=== PATIENT | male | born 1985 | race African-American/Black ===

== ENCOUNTER 2016-05-01 16:03 | Emergency (ER) | payer BC, OTHER ==
[2016-05-01 17:19] LABS: Hematocrit 45 % (42-52); Hemoglobin 14.5 g/dl (14.0-18.0); Mean Corpuscular HGB Conc 33 g/dl (31-36); Mean Corpuscular Hemoglobin 27 pg (27-31); Mean Corpuscular Volume 83 fL (80-94); Mean Platelet Volume 8 um3 (7.4-10.4); Red Blood Count 5.41 10^6/ul (4.0-5.4); Red Cell Distribution Width 14 % (10.5-15); White Blood Count 12.1 10^3/ul (3.5-10.8)
--- NOTE | 2016-05-01 17:19 | RAD ---
INDICATION: Hypertension COMPARISON: October 24, 2013 TECHNIQUE: An AP portable view obtained at 1655 hours is submitted. FINDINGS: Bones/Soft Tissues: There are no acute bony findings. Cardiomediastinal: The cardiomediastinal silhouette is normal. Lungs: There are no infiltrates. Pleura: There are no pleural effusions. Other: None IMPRESSION: NO ACTIVE DISEASE.
[2016-05-01 17:23] LABS: Urine Bilirubin Negative (Negative); Urine Glucose Negative (Negative); Urine Nitrite Negative (Negative)
[2016-05-01] MEDS ORDERED: amLODIPine TAB* 5 MG PO ONE (17:30)
[2016-05-01 17:47] LABS: Albumin 4.6 g/dL (3.2-5.2); BUN/Creatinine Ratio 15.1 (8-20); Calcium 9.9 mg/dL (8.6-10.3); EGFR African American 105.5 (>60); Globulin 3.5 g/dL (2-4); Total Bilirubin 0.3 mg/dL (0.2-1.0); Total Protein 8.1 g/dL (6.4-8.9)
[2016-05-01 17:48] LABS: Potassium 3.7 mmol/L (3.5-5.0)
[2016-05-01 17:57] LABS: TSH (Thyroid Stimulating Horm) 0.86 mcIU/mL (0.34-5.60)
[2016-05-01 18:33] LABS: Troponin I 0.01 ng/mL (<0.04)
[2016-05-01] MEDS ORDERED: NS 0.9% 1000 ML* 2,000 ML IV ONE (18:44)
[2016-05-01 20:16] LABS: Benzodiazepine Urine Screen None Detected (None Detect)
[2016-05-01] MEDS ORDERED: NS 0.9% 1000 ML* 1,000 ML IV ONE (23:59)
--- NOTE | 2016-05-02 00:51 | HP ---
CONSULTATION REPORT: DATE OF CONSULT: 05/01/16 - EMERGENCY DEPT TIME OF EVALUATION: 2099 PRIMARY CARE PHYSICIAN: Hank Pathak MD REASON FOR CONSULT: Evaluation for admission for elevated CPK. HISTORY OF PRESENT ILLNESS: This is a 30-year-old male with the past medical history of hypertension, who presented to the emergency room for not feeling well with an elevated blood pressure. 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 He checked his blood pressure, it was 180/110 which is very high for him. He states he has been compliant with his medications, but does not adhere to a low salt diet. He came to the emergency room for further evaluation. At that time on arrival, his blood pressure had since been lowered. There was no intervention for his blood pressure treatment, but labs did show that he had an elevated CK and mildly elevated AST and ALT. The patient states he denies any exertional activity. He works in the kitchen every day, but he states he is very laid back. He denies any muscle cramping. No abdominal pain. He has had a recent illness a few weeks ago that he thought was due to strep. He had old penicillin that he had from a prior strep infection that he took for 7 days. Denies any fever. No chest pain, no shortness of breath. As mentioned, no muscle aches or pains. Just feeling tired and off. No headache. Otherwise, remaining review of systems is negative. In the emergency room, the patient had labs. He was given a liter of saline and was referred to the hospitalist service for further evaluation. PAST MEDICAL HISTORY: Hypertension. MEDICATIONS: 1. Amlodipine 5 mg p.o. daily. 2. Hydrochlorothiazide 25 mg p.o. daily. ALLERGIES: No known drug allergies. FAMILY HISTORY: Both of his parents are alive and healthy. 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 He does smoke marijuana daily in the evening. No alcohol use. No other illicit drug use. His healthcare proxy is his Sejal dasilva. REVIEW OF SYSTEMS: As mentioned in the HPI. PHYSICAL EXAMINATION GENERAL: In no acute distress, resting comfortably. VITAL SIGNS: Temp 98.1, pulse rate 69, respiratory rate 22, oxygen saturation 97 % on room air, blood pressure 127/81. HEENT: Oropharynx: Mucous membranes are moist. No erythema or exudate. Pupils equal and reactive, anicteric. Head normocephalic. NECK: Supple. No lymphadenopathy. RESPIRATORY: Clear to auscultation. No wheezes, rhonchi, or rales. CARDIAC: Regular rate and rhythm. No murmurs, rubs, or gallops. ABDOMEN: Soft, nontender, nondistended. EXTREMITIES: No clubbing, cyanosis, or edema. +2 DPs. NEUROLOGIC: Alert and oriented x3. No focal neurologic deficits. MUSCULOSKELETAL: No muscle tenderness when palpating his lower extremities. LABORATORY DATA: White count 12.1, hemoglobin 14.5, hematocrit 45, platelets 299. Sodium 136, potassium 3.7, chloride 100, bicarb 29, BUN 16, creatinine 1.06. AST 69, ALT 59. Total CK is 2381. Troponin 0.01. TSH 0.86. Urinalysis is clear. Negative blood. No ketones. Urine tox screen positive for cannabinoids. Chest x-ray shows no active disease. EKG shows normal sinus rhythm. No significant ST changes. ASSESSMENT: This is a 30-year-old male with a past medical history of hypertension, who presented to the emergency room with an elevated hypertension while at work, who was found to have an elevated CK and elevated AST and ALT. 1. Elevated CK with elevated LFTs. Assessment: The patient has had elevated LFTs in the past. This could be unrelated to his elevated CK, although with mild rhabdo, you can have elevated transaminases. His diagnosis is mild rhabdomyolysis, most likely secondary to a viral myositis. He has not had any recent blood work to compare to, but I suspect this is probably trending down from his viral illness with the strep. No renal impairment. No findings on urinalysis. The patient is reluctant to come in because he states he needs to leave at 7:30 a.m. and would rather follow up with his primary care physician. Recommendation: I spoke with Dr. Diamond and stated possibly repeating his labs to see if they are going down after a bag of fluids and that he should follow up with his primary care physician if there is further workup needed or things progressed, and he certainly could be admitted, but at this time with him being asymptomatic, showing mild rhabdo with no other organ impairment, the patient can be discharged to home with close followup with his primary. Dr. Diamond and the patient are agreeable to this. PATIENT TIME: Greater than 60 minutes was spent doing the history and physical , more than half the time was spent in direct patient contact. CC: Hank Pathak MD * [id number]/[facility] #: [id number] MTDD
[2016-05-02 04:11] VITALS: BP 126/88
--- NOTE | 2016-05-12 21:01 | ED ---
aster Torres Timothy, scribed for Adan Diamond MD on 05/01/16 at 1641 . Hypertension - HPI Summary HPI Summary: Ltio Mooney is a 30 yo male presenting to [facility] with feelings of weakness and fatigue since 1500 today. Pt states he feels "spent". He has a Hx of HTN as of 2 years ago, and took his BP at work and found it to be 180/110. He states he had left arm and leg numbness for about 1.5 hours ago, which has since resolved. He states he had his BP taken a week ago and it was normal. He denies unilateral weakness or numbness, as well as any other Sx. He denies any new stressors. His MHx includes HTN, lumbar surgery 2010, and substance use. - History of Current Complaint Stated Complaint: HIGH BLOOD PRESSURE Time Seen by Provider: 05/01/16 16:39 Hx Obtained From: Patient Onset/Duration: Started Hours Ago, Still Present Timing: Constant Reported Blood Pressure Prior To Arrival: 180/110 Associated Signs & Symptoms: Numbness - LLE, LUE, Other: - fatigue/weakness - Allergies/Home Medications Allergies/Adverse Reactions: Allergies Allergy/AdvReac Type Severity Reaction Status Date / Time No Known Allergies Allergy Verified 12/26/15 16:15 PMH/Surg Hx/FS Hx/Imm Hx Endocrine/Hematology History: Denies: Hx Anticoagulant Therapy, Hx Diabetes, Hx Thyroid Disease Cardiovascular History: Reports: Hx Hypertension Denies: Hx Pacemaker/ICD Respiratory History: Denies: Hx Asthma, Hx Chronic Obstructive Pulmonary Disease (COPD) History: Denies: Hx Renal Disease Sensory History: Denies: Hx Hearing Aid Neurological History: Denies: Hx Dementia, Hx Seizures Psychiatric History: Denies: Hx Panic Disorder, Hx Substance Abuse - Surgical History Surgery Procedure, Year, and Place: lumbar surgery 2010 Infectious Disease History: No Infectious Disease History: Denies: Hx Hepatitis, Hx Human Immunodeficiency Virus (HIV), Traveled Outside the [place] in Last 30 Days - Family History Known Family History: Positive: Hypertension, Diabetes, Other - cancer - Social History Alcohol Use: Rare Hx Substance Use: Yes Substance Use Type: Reports: Marijuana Substance Use Comment - Amount & Last Used: occassional Hx Tobacco Use: No Smoking Status (MU): Never Smoked Tobacco Review of Systems Positive: Fatigue Eyes: Negative ENT: Negative Cardiovascular: Negative Negative: Chest Pain Respiratory: Negative Negative: Shortness Of Breath, Cough Gastrointestinal: Negative Negative: Vomiting, Nausea Genitourinary: Negative Musculoskeletal: Negative Skin: Negative Positive: Weakness, Numbness - LLE, LUE Psychological: Normal All Other Systems Reviewed And Are Negative: Yes Physical Exam - Summary Physical Exam Summary: VITAL SIGNS: Reviewed. GENERAL: Patient is a well developed and nourished male who is lying comfortable in the stretcher. Patient is not in any acute respiratory distress. HEAD AND FACE: No signs of trauma. No ecchymosis, hematomas or skull depressions. No sinus tenderness. EYES: PERRLA, EOMI x 2, No injected conjunctiva, no nystagmus. EARS: Hearing grossly intact. Ear canals and tympanic membranes are within normal limits. MOUTH: Oropharynx within normal limits. NECK: Supple, trachea is midline, no adenopathy, no JVD, no carotid bruit, no c- spine tenderness, neck with full ROM. CHEST: Symmetric, no tenderness at palpation LUNGS: Clear to auscultation bilaterally. No wheezing or crackles. CVS: Regular rate and rhythm, S1 and S2 present, no murmurs or gallops appreciated. ABDOMEN: Soft, non-tender. No signs of distention. No rebound no guarding, and no masses palpated. Bowel sounds are normal. EXTREMITIES: FROM in all major joints, no edema, no cyanosis or clubbing. NEURO: Alert and oriented x 3. No acute neurological deficits. Speech is normal and follows commands. SKIN: Dry and warm Triage Information Reviewed: Yes Vital Signs On Initial Exam: Initial Vitals Temp Pulse Resp BP Pulse Ox 98.1 F 91 20 162/93 98 05/01/16 16:21 05/01/16 16:21 05/01/16 16:21 05/01/16 16:21 05/01/16 16:21 Vital Signs Reviewed: Yes Diagnostics - Vital Signs Vital Signs Temp Pulse Resp BP Pulse Ox 05/01/16 16:21 98.1 F 91 20 162/93 98 - Laboratory Lab Results: Lab Results 05/01/16 05/01/16 Range/Units 17:00 17:00 WBC 12.1 H (3.5-10.8) 10^3/ul RBC 5.41 H (4.0-5.4) 10^6/ul Hgb 14.5 (14.0-18.0) g/dl Hct 45 (42-52) % MCV 83 (80-94) fL MCH 27 (27-31) pg MCHC 33 (31-36) g/dl RDW 14 (10.5-15) % Plt Count 299 (150-450) 10^3/ul MPV 8 (7.4-10.4) um3 Neut % (Auto) 49.2 (38-83) % Lymph % (Auto) 41.1 (25-47) % [place] % (Auto) 6.1 (1-9) % Eos % (Auto) 2.6 (0-6) % Baso % (Auto) 1.0 (0-2) % Absolute Neuts (auto) 6.0 (1.5-7.7) 10^3/ul Absolute Lymphs (auto) 5.0 H (1.0-4.8) 10^3/ul Absolute Monos (auto) 0.7 (0-0.8) 10^3/ul Absolute Eos (auto) 0.3 (0-0.6) 10^3/ul Absolute Basos (auto) 0.1 (0-0.2) 10^3/ul Absolute Nucleated RBC 0.02 10^3/ul Nucleated RBC % 0.2 Urine Color Yellow Urine Appearance Clear Urine pH 5.0 (5-9) Ur Specific [place] 1.021 (1.010-1.030) Urine Protein Negative (Negative) Urine Ketones Negative (Negative) Urine Blood Negative (Negative) Urine Nitrate Negative (Negative) Urine Bilirubin Negative (Negative) Urine Urobilinogen Negative (Negative) Ur Leukocyte Esterase Negative (Negative) Urine Glucose Negative (Negative) Urine Ascorbic Acid * H (Negative) Result Diagrams: 05/01/16 17:00 05/01/16 17:00 Lab Statement: Any lab studies that have been ordered have been reviewed, and results considered in the medical decision making process. - Radiology CXR Xray Interpretation: No Acute Changes - IMPRESSION: NO ACTIVE DISEASE. Radiology Interpretation Completed By: Radiologist - EKG 2121 Cardiac Rate: NL - 83 BPM EKG Interpretation: NSR @ 83 BPM, no ST elevation Re-Evaluation - Re-Evaluation First Eval Re-Evaluation Time: 19:04 Change: Worse Comment: Pt is feeling weak and tired, "horrible" Second Eval Re-Evaluation Time: 21:00 Change: Unchanged Comment: Pt was instructed that it is recommended that he be admitted to [facility], he states he is unable to do so. His CPK will be repeated, a final decision will be made pending this information. Hypertension Course/Dx - Course Assessment/Plan: Lito Mooney is a 30 yo male presenting [facility] aft taking his own BP and finding it to be 180/110, and feeling weak with numbness in his LLE and LUE which spnatenously reolved. His BP in room was 162/93. Pt's bloodwork was within normal limitsexcept for his white count of 12.1, Cl 100, cpk 2381, consistent with rhabdomyolysis. Troponin tests showed 0.01, the urinalysis showed negative results. His CXR showed no acute disease, his EKG displayed a NSR at [address] elevations. Initially, he was hypertensive, but without medication, his BP improved, it is now 127/81. Pt was given IV fluids for his rhabdomyolysis. I discussed my findings and results with Dr. Anguiano who accepted the Pt for work up and management. After the patient was admitted he decided that he can not stay. Therfore he was hydrated with IVF x liters and repeated the CPK. CPK # is pending, and he will be signed out to Dr. Carlson. He was recommended if discharged to increase his water intake and he will be discharged home with f/u of PMD. He understands and agrees. I discussed all the findings and test results with the patient. Patient was instructed to return to the emergency room immediately if any of the symptoms return or worsens. Plan of care was discussed with the patient and understands and agrees. All questions were answered at patient satisfaction. There were no further complaints or concerns. Lung exam before discharge: CTA B/L. Good air exchange. No wheezing or crackles heard. CVS: S1 and S2 present. No murmurs appreciated. Patient is alert and oriented x 3. Patient is hemodynamically stable. 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 Anguiano (hospitalist) - Discussed Pt condiiton, agrees to admit Pt Instructed by Provider To: Admit As Inpatient Discharge - Discharge Plan Condition: Stable Disposition: OTHER Discharge Disposition Comment: Signed out to Dr. Carlson pending CPK Patient Education Materials: Rhabdomyolysis (ED), Hypertension (ED) Referrals: Hank Pathak MD [Primary Care Provider] - Additional Instructions: Please follow up with your primary care physician regarding your visit to the emergency department today. Return to the emergency department with any new or recurring symptoms. The documentation as recorded by the aster chavez Timothy accurately reflects the service I personally performed and the decisions made by me, Adan Diamond MD.
== END 2016-05-02 04:11 | disposition home or self-care (01) ==
LOC: ED 16:03
DX: M62.82 Rhabdomyolysis (principal); I10 Essential (primary) hypertension
CPT/HCPCS: 36415; 71010; 80053; 80307; 81003; 82550; 82553; 83880; 84443; 84484; 85025; 93005; 96360; 99283; A9270-GY

== ENCOUNTER 2017-02-22 10:29 | Emergency (ER) | payer BC ==
[2017-02-22 11:46] LABS: ABS Basophils 0 10^3/ul (0-0.2); ABS Eosinophils 0.1 10^3/ul (0-0.6); ABS Lymphocytes 2.6 10^3/ul (1.0-4.8); ABS Monocytes 0.7 10^3/ul (0-0.8); ABS Neutrophils 4.1 10^3/ul (1.5-7.7); ABS Nucleated RBC 0 10^3/ul; Eosinophil % 1.3 % (0-6); Hematocrit 43 % (42-52); Hemoglobin 14.4 g/dl (14.0-18.0); Lymphocyte % 34.8 % (25-47); Mean Corpuscular HGB Conc 33 g/dl (31-36); Mean Corpuscular Hemoglobin 28 pg (27-31); Mean Corpuscular Volume 83 fL (80-94); Mean Platelet Volume 7 um3 (7.4-10.4); Nucleated Red Blood Cells % 0.1; Platelet Count 265 10^3/ul (150-450); Red Blood Count 5.21 10^6/ul (4.0-5.4); Red Cell Distribution Width 14 % (10.5-15); White Blood Count 7.6 10^3/ul (3.5-10.8)
[2017-02-22] MEDS ORDERED: NS 0.9% 1000 ML* 1,000 ML IV ONE (11:46)
[2017-02-22] MEDS ORDERED: Ondansetron INJ* 2 MG/ML VIAL IV ONE (11:46)
[2017-02-22 12:01] LABS: EGFR Non-African American 87.2 (>60)
[2017-02-22] MEDS ORDERED: Famotidine TAB* 20 MG PO ONE (13:16)
[2017-02-22] MEDS ORDERED: Al Hydrox/Mg Hydrox/Simet LIQ* 30 ML UDC PO ONE (13:16)
[2017-02-22 14:23] VITALS: BP 148/85
--- NOTE | 2017-02-22 18:08 | ED ---
Derek Torres Natalie, scribed for Jayden Morales MD on 02/22/17 at 1327 . Abdominal Pain/Male - HPI Summary HPI Summary: The pt is a 31 y/o M presenting to the ED c/o abd pain gradual onset. The pain is rated 6/10 in severity. The pain is aggravated by nothing and is alleviated by nothing. 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 Pt additionally c /o diarrhea, vomiting, indigestion, decreased fluid intake. Pt denies blood in stool. No one else in his home currently has the same symptoms. He has hx of HTN. He does not smoke or drink. He has not had any abd surgery. - History of Current Complaint Chief Complaint: EDAbdPain Stated Complaint: VOMITING/DIARRHEA/ABD PAIN Time Seen by Provider: 02/22/17 13:12 Hx Obtained From: Patient Onset/Duration: Gradual Onset, Still Present Timing: Lasting Hours Severity Initially: Moderate Severity Currently: Moderate Pain Intensity: 6 Pain Scale Used: 0-10 Numeric Location: Diffuse Radiates: No Aggravating Factor(s): Nothing Alleviating Factor(s): Nothing Associated Signs And Symptoms: Positive: Other - POSITIVE: diarrhea, vomiting, indigestion, decreased fluid intake; NEGATIVE: blood in stool - Allergies/Home Medications Allergies/Adverse Reactions: Allergies Allergy/AdvReac Type Severity Reaction Status Date / Time No Known Allergies Allergy Verified 02/22/17 10:35 PMH/Surg Hx/FS Hx/Imm Hx Previously Healthy: No Endocrine/Hematology History: Denies: Hx Anticoagulant Therapy, Hx Diabetes, Hx Thyroid Disease Cardiovascular History: Reports: Hx Hypertension Denies: Hx Pacemaker/ICD Respiratory History: Denies: Hx Asthma, Hx Chronic Obstructive Pulmonary Disease (COPD) History: Denies: Hx Renal Disease Sensory History: Denies: Hx Hearing Aid Neurological History: Denies: Hx Dementia, Hx Seizures Psychiatric History: Denies: Hx Panic Disorder, Hx Substance Abuse - Surgical History Surgery Procedure, Year, and Place: lumbar surgery 2010 Infectious Disease History: No Infectious Disease History: Denies: Hx Hepatitis, Hx Human Immunodeficiency Virus (HIV), Traveled Outside the [place] in Last 30 Days - Family History Known Family History: Positive: Hypertension, Diabetes, Other - cancer - Social History Alcohol Use: Rare Hx Substance Use: Yes Substance Use Type: Reports: Marijuana Substance Use Comment - Amount & Last Used: occassional Hx Tobacco Use: No Smoking Status (MU): Never Smoked Tobacco Review of Systems Negative: Fever Positive: Abdominal Pain, Vomiting, Diarrhea, Other - POSITIVE: indigestion, decresed fluid intake; NEGATIVE: blood in stool All Other Systems Reviewed And Are Negative: Yes Physical Exam Triage Information Reviewed: Yes Vital Signs On Initial Exam: Initial Vitals Temp Pulse Resp BP Pulse Ox 97.3 F 77 16 157/98 97 02/22/17 10:35 02/22/17 10:35 02/22/17 10:35 02/22/17 10:35 02/22/17 10:35 Vital Signs Reviewed: Yes Appearance: Positive: Well-Appearing, No Pain Distress Skin: Positive: Warm, Skin Color Reflects Adequate Perfusion, Dry Head/Face: Positive: Normal Head/Face Inspection Eyes: Positive: EOMI, SRAVAN ENT: Positive: Normal ENT inspection Neck: Positive: Supple, Nontender Respiratory/Lung Sounds: Positive: Clear to Auscultation, Breath Sounds Present Cardiovascular: Positive: RRR, Pulses are Symmetrical in both Upper and Lower Extremities Abdomen Description: Positive: Nontender, Soft Bowel Sounds: Positive: Present Musculoskeletal: Positive: Normal, Strength/ROM Intact Neurological: Positive: Normal, Sensory/Motor Intact, Alert, Oriented to Person Place, Time Diagnostics - Vital Signs Vital Signs Temp Pulse Resp BP Pulse Ox 02/22/17 10:35 97.3 F 77 16 157/98 97 - Laboratory Lab Results: Lab Results 02/22/17 02/22/17 02/22/17 Range/Units 11:14 11:14 11:14 WBC 7.6 (3.5-10.8) 10^3/ul RBC 5.21 (4.0-5.4) 10^6/ul Hgb 14.4 (14.0-18.0) g/dl Hct 43 (42-52) % MCV 83 (80-94) fL MCH 28 (27-31) pg MCHC 33 (31-36) g/dl RDW 14 (10.5-15) % Plt Count 265 (150-450) 10^3/ul MPV 7 L (7.4-10.4) um3 Neut % (Auto) 54.3 (38-83) % Lymph % (Auto) 34.8 (25-47) % [place] % (Auto) 9.3 H (1-9) % Eos % (Auto) 1.3 (0-6) % Baso % (Auto) 0.3 (0-2) % Absolute Neuts (auto) 4.1 (1.5-7.7) 10^3/ul Absolute Lymphs (auto) 2.6 (1.0-4.8) 10^3/ul Absolute Monos (auto) 0.7 (0-0.8) 10^3/ul Absolute Eos (auto) 0.1 (0-0.6) 10^3/ul Absolute Basos (auto) 0 (0-0.2) 10^3/ul Absolute Nucleated RBC 0 10^3/ul Nucleated RBC % 0.1 Sodium 135 (133-145) mmol/L Potassium 3.5 (3.5-5.0) mmol/L Chloride 100 L (101-111) mmol/L Carbon Dioxide 28 (22-32) mmol/L Anion Gap 7 (2-11) mmol/L BUN 10 (6-24) mg/dL Creatinine 1.00 (0.67-1.17) mg/dL Est GFR ( Amer) 112.1 (>60) Est GFR (Non-Af Amer) 87.2 (>60) BUN/Creatinine Ratio 10.0 (8-20) Glucose 93 (70-100) mg/dL Lactic Acid 0.8 (0.5-2.0) mmol/L Calcium 8.9 (8.6-10.3) mg/dL Total Bilirubin 0.60 (0.2-1.0) mg/dL AST 31 (13-39) U/L ALT 45 (7-52) U/L Alkaline Phosphatase 42 (34-104) U/L C-Reactive Protein 28.77 H (< 5.00) mg/L Total Protein 7.3 (6.4-8.9) g/dL Albumin 4.2 (3.2-5.2) g/dL Globulin 3.1 (2-4) g/dL Albumin/Globulin Ratio 1.4 (1-3) Lipase 12 (11.0-82.0) U/L Result Diagrams: 02/22/17 11:14 02/22/17 11:14 Lab Statement: Any lab studies that have been ordered have been reviewed, and results considered in the medical decision making process. Re-Evaluation - Re-Evaluation First Eval Change: Improved Abdominal Pain Fem Course/Dx - Course Course Of Treatment: pt with N/V/D. Tx with hydration, zofran with improvement. Likely viral with current viral source AGE endemic in the area. - Diagnoses Differential Diagnosis/HQI/PQRI: Diverticulitis, Pancreatitis, Other - AGE Provider Diagnoses: Acute gastroenteritis Discharge - Discharge Plan Condition: Good Disposition: HOME Prescriptions: Famotidine TAB* [Pepcid 20 MG TAB*] 20 mg PO BID #14 tab Ondansetron ODT TAB* [Zofran 4 MG Odt TAB*] 4 mg PO Q8H PRN #10 tab.odt PRN Reason: Nausea Patient Education Materials: Gastroenteritis (ED) Forms: *Work Release Referrals: Hank Pathak MD [Primary Care Provider] - Additional Instructions: [place] diet, avoid antiinflammatory medications and alcohol/caffeine. Drink plenty of fluids, vitamin water or Gatorade G2 will help. Return with blood in vomit/stool, unable to keep down fluids, worse or other concerns. The documentation as recorded by the Derek chavez Natalie accurately reflects the service I personally performed and the decisions made by , Jayden Morales MD.
== END 2017-02-22 14:27 | disposition home or self-care (01) ==
LOC: ED 10:29
DX: K52.9 Noninfective gastroenteritis and colitis, unspecified (principal); R19.7 Diarrhea, unspecified; R11.10 Vomiting, unspecified; Z86.79 Personal history of other diseases of the circulatory system; R10.9 Unspecified abdominal pain
CPT/HCPCS: 36415; 80053; 83605; 83690; 85025; 86140; 96361; 96374; 99283; A9270-GY; J2405

== ENCOUNTER 2017-11-10 14:29 | Emergency (ER) | payer BC, OTHER ==
[2017-11-10 15:15] VITALS: BP 146/86
--- NOTE | 2017-11-10 15:47 | UC ---
Hand/Wrist HPI - HPI Summary HPI Summary: 32 y/o male presents to the urgent care c/o Was picking up a morgan at work and felt something "snap" un his left wrist, having pain and numbness, pain when extending his arm. - History Of Current Complaint Chief Complaint: UCUpperExtremity Stated Complaint: L WRIST INJURY Time Seen by Provider: 11/10/17 15:21 Hx Obtained From: Patient Onset/Duration: Sudden Onset, Lasting Days - 1 day, Still Present, Worse Since - today Severity Initially: Moderate Severity Currently: Moderate Pain Intensity: 8 - w/ hyper extension Pain Scale Used: 0-10 Numeric Character Of Pain: Sharp Aggravating Factor(s): Movement, Lifting, Extension, Abduction Alleviating Factor(s): Rest, Ice, OTC Meds - ibuprofen Associated Signs And Symptoms: Positive: Swelling - mild on the medial aspect ot L wrist, Numbness/Tingling - L wrist. Negative: Bruising, Fever, Weakness Related History: Dominant Hand Right - Allergies/Home Medications Allergies/Adverse Reactions: Allergies Allergy/AdvReac Type Severity Reaction Status Date / Time No Known Allergies Allergy Verified 11/10/17 15:16 Home Medications: Home Medications Diltiazem TAB* [Cardizem 30 MG Tab*] 30 mg PO DAILY 11/10/17 [History Confirmed 11/10/17] Hydrochlorothiazide TAB* [Hydrodiuril TAB*] 25 mg PO DAILY 11/10/17 [History Confirmed 11/10/17] PMH/Surg Hx/FS Hx/Imm Hx Previously Healthy: Yes Cardiovascular History: Hypertension GI/ History: Kidney Stones Other History Of: Negative For: Anticoagulant Therapy - Surgical History Surgical History: Yes Surgery Procedure, Year, and Place: lumbar surgery 2010 - Family History Known Family History: Positive: Hypertension, Diabetes Family History: cancer - Social History Occupation: Employed Full-time Lives: With Family Alcohol Use: Occasionally Substance Use Type: Marijuana Substance Use Comment - Amount & Last Used: occassional Smoking Status (MU): Never Smoked Tobacco Review of Systems Constitutional: Negative Skin: Other - left wrist swelling Eyes: Negative ENT: Negative Respiratory: Negative Cardiovascular: Negative Gastrointestinal: Negative Genitourinary: Negative Motor: Negative Neurovascular: Negative Musculoskeletal: Decreased ROM - left wrist abduction, Other: - left wrist pain Neurological: Negative Psychological: Negative Is Patient Immunocompromised?: No All Other Systems Reviewed And Are Negative: Yes Physical Exam - Summary Physical Exam Summary: Vital Signs Reviewed: Yes General: Well-Appearing, No Pain Distress, Well-Nourished obese male w/o any apparent distress Eyes: Positive: Conjunctiva Clear - PERRLA, EOMI ENT: Positive: Normal ENT inspection, Hearing grossly normal, Pharynx normal, TMs normal, Uvula midline Neck: Positive: Supple, Nontender, No Lymphadenopathy Respiratory: Positive: Chest non-tender, Lungs clear, Normal breath sounds, No respiratory distress Cardiovascular: Positive: RRR, No Murmur, Pulses Normal, Brisk Capillary Refill Abdomen Description: Positive: Nontender, No Organomegaly, Soft. Negative: CVA Tenderness (R), CVA Tenderness (L) Bowel Sounds: Positive: Present Musculoskeletal: Positive: Strength Intact, Other: Neurological Exam: Normal Musculoskeletal: Positive: Wrist: the L wrist is without obvious asymmetry or deformity when compared to the R wrist. No surface trauma, open wounds, swelling , or obvious deformity. No overlying erythema or warmth. No bony crepitus. Point tenderness over the thenar eminence and ventral side of wrist. No scaphoid fullness or tenderness to direct palpation or axial load. Decreased abduction, or hyperextension the rest FROM and left wrist and all fingers.. Motor/sensory function of ulnar, radial, median nerves intact. Ulnar and radial pulses intact. Psychological Exam: Normal Skin Exam: Normal Triage Information Reviewed: Yes Vital Signs: Initial Vital Signs Temp 97.7 F 11/10/17 15:10 Pulse 66 11/10/17 15:10 Resp 20 11/10/17 15:10 BP 146/86 11/10/17 15:10 Pulse Ox 100 11/10/17 15:10 Hand/Wrist Course/Dx - Differential Dx/Diagnosis Differential Diagnosis/HQI/PQRI: Contusion, Fracture, Sprain, Strain, Tendonitis , Tenosynovitis Provider Diagnoses: 1- Left wrist pain s/p injury. 2- Left wrist sprain. 3- Uncontrolled HTN Discharge - Sign-Out/Discharge Documenting (check all that apply): Patient Departure - D/C home All imaging exams completed and their final reports reviewed: Yes - Discharge Plan Condition: Stable Disposition: HOME Prescriptions: Ibuprofen TAB* [Motrin TAB* 800 MG] 800 mg PO Q6H #30 tab Patient Education Materials: Low-Sodium Diet (ED), Wrist Sprain (ED) Referrals: [facility] [Provider Group] - 1 Week Hank Pathak MD [Primary Care Provider] - 1 Week Additional Instructions: 1-Please take medications as directed to alleviate pain and swelling. 2-Please apply ice, keep your wrist immobilized with the splint. Avoid heavy lifting, repetitive movements 3- Please f/u with Orthopedic from [facility] Medicine or your PCP in 1 week is not improvement of symptoms for further evaluation and treatment. 4-Your BP is elevated today. please decrease salt in your diet, monitor BP and if it continues to be elevated please f/u with your PCP for further management - Billing Disposition and Condition Condition: STABLE Disposition: Home
--- NOTE | 2017-11-10 16:18 | RAD ---
INDICATION: Pain COMPARISON: None. TECHNIQUE: 3 views left wrist. REPORT: The visualized bones are properly aligned and well corticated. The joint spaces are normal.There is no fracture, dislocation or other focal osseous abnormality. IMPRESSION: Normal radiograph of the left wrist. If the patient's symptoms persist, follow-up imaging is recommended.
== END 2017-11-10 16:42 | disposition home or self-care (01) ==
LOC: UCEAST 14:29
DX: S63.502A Unspecified sprain of left wrist, initial encounter (principal); X50.9XXA Other and unspecified overexertion or strenuous movements or postures, initial encounter; Y93.9 Activity, unspecified; Y92.9 Unspecified place or not applicable; Y99.0 Civilian activity done for income or pay; I10 Essential (primary) hypertension
CPT/HCPCS: 99213; G0463

== ENCOUNTER 2018-04-22 09:18 | Emergency (ER) | payer BC, OTHER ==
[2018-04-22 09:35] VITALS: BP 158/107
--- NOTE | 2018-04-22 10:04 | UC ---
Throat Pain/Nasal Matt HPI - HPI Summary HPI Summary: 32 yo male presents with sore throat. He tells me that about a week ago he developed a sore throat that felt scratchy, but since that time has gotten progressively worse and this morning noticed white spots in the back of his throat. He says that his children at home have been sick with URIs and pneumonia. He has been taking ibuprofen for his discomfort with mild relief. Denies fever, chills, sinus symptoms, cough, rash, n/v. - History of Current Complaint Chief Complaint: UCGeneralIllness Stated Complaint: SORE THROAT Time Seen by Provider: 04/22/18 10:04 Hx Obtained From: Patient Onset/Duration: Gradual Onset Severity: Mild Pain Intensity: 3 Pain Scale Used: 0-10 Numeric - Allergies/Home Medications Allergies/Adverse Reactions: Allergies Allergy/AdvReac Type Severity Reaction Status Date / Time No Known Allergies Allergy Verified 04/22/18 09:35 PMH/Surg Hx/FS Hx/Imm Hx Cardiovascular History: Hypertension Other History Of: Negative For: Anticoagulant Therapy - Surgical History Surgical History: Yes Surgery Procedure, Year, and Place: lumbar surgery 2010 - Family History Known Family History: Positive: Hypertension, Diabetes, Other - cancer Family History: cancer - Social History Occupation: Employed Full-time Lives: With Family Alcohol Use: Occasionally Substance Use Type: Marijuana Substance Use Comment - Amount & Last Used: occassional Smoking Status (MU): Never Smoked Tobacco Review of Systems All Other Systems Reviewed And Are Negative: Yes Constitutional: Positive: Negative Skin: Positive: Negative Eyes: Positive: Negative ENT: Positive: Sore Throat Respiratory: Positive: Negative Cardiovascular: Positive: Negative Gastrointestinal: Positive: Negative Neurovascular: Positive: Negative Neurological: Positive: Negative Psychological: Positive: Negative Physical Exam - Summary Physical Exam Summary: GENERAL: NAD. WDWN. No pain distress. SKIN: No rashes, sores, lesions, or open wounds. HEENT: Head: AT/NC Eyes: Conjunctiva clear without inflammation or discharge. Ears: Hearing grossly normal. TMs intact, no bulging, erythema, or edema. Nose: Nasal mucosa pink and moist. NTTP maxillary and frontal sinus. Throat: Posterior oropharynx mild erythema and 2+ tonsillar enlargement. No exudates. Uvula midline. No hoarse voice or muffled voice. NECK: Supple. Nontender. No lymphadenopathy. CHEST: CTAB. No r/r/w. No accessory muscle use. Breathing comfortably and in no distress. CV: RRR. Without m/r/g. Pulses intact. Cap refill <2seconds NEURO: Alert. PSYCH: Age appropriate behavior. Triage Information Reviewed: Yes Vital Signs: Initial Vital Signs Temp 98.2 F 04/22/18 09:32 Pulse 67 04/22/18 09:32 Resp 18 04/22/18 09:32 BP 158/107 04/22/18 09:32 Pulse Ox 99 04/22/18 09:32 Laboratory Tests 04/22/18 09:43 Group A Strep Rapid Negative Vital Signs Reviewed: Yes Throat Pain/Nasal Course/Dx - Course Course Of Treatment: POC strep negative. Discussed viral vs bacterial causes of his sore throat and he wishes to be on antibiotics at this time given his length of symptoms and sick contacts at home. - Differential Dx/Diagnosis Provider Diagnosis: Pharyngitis Discharge - Sign-Out/Discharge Documenting (check all that apply): Patient Departure All imaging exams completed and their final reports reviewed: No Studies - Discharge Plan Condition: Stable Disposition: HOME Prescriptions: Amoxicillin PO (*) [Amoxicillin 875 MG (*)] 875 mg PO BID #14 tab Patient Education Materials: Pharyngitis (ED) Referrals: Hank Pathak MD [Primary Care Provider] - Additional Instructions: If you develop a fever, shortness of breath, chest pain, new or worsening symptoms - please call your PCP or go to the ED. Your blood pressure was high at todays visit. Please see your primary provider within 4 weeks for recheck and re-evaluation. - Billing Disposition and Condition Condition: STABLE Disposition: Home
== END 2018-04-22 10:23 | disposition home or self-care (01) ==
LOC: UCEAST 09:18
DX: J02.9 Acute pharyngitis, unspecified (principal); I10 Essential (primary) hypertension
CPT/HCPCS: 87651; 99212; G0463

== ENCOUNTER → 2018-09-23 08:32 | Day surgery (SDC) | payer OTHER ==
--- NOTE | 2018-09-10 10:53 | HP ---
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 HISTORY OF PRESENT ILLNESS: This is a 33-year-old male who is complaining of left wrist pain. 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 Prior to being seen by Dr. Osborn, he was seen elsewhere and had x-rays which were read as negative and an ultrasound that showed "fluid in the wrist." He received a cortisone injection; however, that made his pain worse. He was then examined by Dr. Osborn. The patient reports that the pain is on the radial aspect of the left wrist and it increases with activities. It is a throbbing pain and sometimes radiates about mcfp up his forearm. He denies any associated numbness or tingling. He has tried wearing a wrist brace , but this has not been helpful either. He has at this time consented to proceed with surgical intervention. PAST MEDICAL HISTORY: 1. Hypertension. 2. Back pain. PAST SURGICAL HISTORY: Back surgery and L3 diskectomy. CURRENT MEDICATIONS: 1. Diltiazem HCl 240 mg daily. 2. Hydrochlorothiazide 12.5 mg daily. ALLERGIES: No known drug allergies. FAMILY MEDICAL HISTORY: Diabetes, hypertension, cancer. 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 He denies tobacco use. He does use marijuana on occasion and drinks alcohol on occasion. REVIEW OF SYSTEMS: Negative for general, cephalic, cardiovascular, respiratory , GI, . Musculoskeletal: Positive for current complaint and back pain. Negative integumentary, endocrine, neurologic and hematologic symptoms. Infectious Disease: Negative for history of MRSA, hepatitis C, HIV. PHYSICAL EXAMINATION GENERAL: A well-developed, well-nourished 33-year-old male, in no acute distress. VITAL SIGNS: Height 5 feet 11 inches, weight 285 pounds. Pulse rate 81, blood pressure 128/88. HEENT: Normocephalic, atraumatic. Pupils are equal, round, and reactive to light and accommodation. Extraocular movements are intact. Throat is clear. NECK: Supple. No palpable lymph nodes. PULMONARY: Lungs are clear to auscultation bilaterally. No wheezes, rales, or rhonchi. CARDIOVASCULAR: Regular rate and rhythm. S1, S2. No murmurs, rubs, or gallops. No edema. ABDOMEN: Positive bowel sounds. Soft, nontender. NEUROLOGICAL: Alert and oriented x3. Cranial nerves II through XII are intact. Sensation is intact to light touch. MUSCULOSKELETAL: On exam of his left wrist, there is mild edema about the radial aspect of the wrist and tenderness to palpation over the radial styloid. He has full active range of motion and resistive range of motion of the wrist and fingers with pain on ulnar deviation and thumb flexion. Passive ulnar deviation and thumb flexion also causes pain on the radial aspect of the wrist. Positive Minoo test. Negative grind test. Negative Tinel's. Neurovascular function is intact. IMAGING STUDIES: X-rays show no evidence of fracture at the left wrist. IMPRESSION: Left wrist de Quervain tenosynovitis. PLAN: The patient is scheduled to undergo a left wrist de Quervain release with Dr. Osborn on 09/23/18. He will return to the office 10 days postop for followup and suture removal. A prescription for Ultracet was e-scribed to the patient's pharmacy for postoperative pain management. JOSUÉ MENDES [id number]/[facility] [place] #: [id number] MTDJennie
[~2018-09-23 08:32] MED LIST: Buffered Lidocaine 1% SYRIN* 1 ML/SYRINGE INTRADERM ONE; Lactated Ringers 1000 ML Bag* 1,000 ML IV SCH; Lidocaine 1% INJ* 10 MG/ML 30 ML SDV ONE; Lidocaine 2% PF * 5 ML VIAL ONE; Midazolam* 1 MG/ML 2 ML VIAL (2 MG) ONE; Naloxone* 0.4 MG/ML 1 ML VIAL IV PRN; Propofol* 10 MG/ML 20 ML BTL ONE; fentaNYL* 50 MCG/ML 2 ML VIAL (100 MCG VIAL) ONE
[2018-09-23 11:20] VITALS: BP 137/83
--- NOTE | 2018-09-23 12:44 | OP ---
DATE OF OPERATION: 09/23/18 [facility] DATE OF : 85 SURGEON: Eva Osborn MD. NATURAL GAS BASIS TRADER: JOSUÉ Carey. ANESTHESIA: Local MAC. PRE-OP DIAGNOSIS: Left de Quervain tenosynovitis. POST-OP DIAGNOSES: 1. Left de Quervain tenosynovitis. 2. Left wrist ganglion. OPERATIVE PROCEDURES: Left de Quervain release and ganglion cyst excision. ESTIMATED BLOOD LOSS: Zero. TOURNIQUET TIME: About 20 minutes. INDICATIONS FOR PROCEDURE: Lito is a 33-year-old man who suffered an injury of his left wrist which resulted in a de Quervain tenosynovitis. Initially, this got a little bit better with injection, but has recurred. He also has a painful mass and pain that radiates up into his forearm. He presents for left de Quervain release. DESCRIPTION OF PROCEDURE: The patient was brought to the operating room, was given a sedation anesthetic and a local infiltration of 10 cc of 1% plain lidocaine overlying the left wrist radial styloid. The skin of his left upper extremity was prepped and draped in the usual sterile fashion. The hand and forearm were exsanguinated and the tourniquet elevated to 250 mmHg. A longitudinal incision was made centered over the tip of the radial styloid and we dissected through the subcutaneous tissue down to the first dorsal compartment. There were two branches of the radial sensory nerve which were located and retracted by the instructor adjunct surgical technician, Suzette Parada. There was a ganglion cyst emanating from the first dorsal compartment as well. This was removed and sent for pathology. The tendons in the first compartment were completely released and the APL and EPB tendons were in separate sheaths. Both were completely released. The tendons were in good condition. The wound was irrigated and the skin edges reapproximated with 4-0 nylon suture. The wound was dressed with Xeroform, 4x4, Webril, and an Taurus wrap. The patient tolerated the procedure well and was brought to the recovery room in good condition. [id number]/[facility] #: [id number] [facility]ITALJennie
== END | disposition home or self-care (01) ==
LOC: OREAST 08:32
PROVIDERS: ATTEND Orthopaedic Surgery
DX: M65.4 Radial styloid tenosynovitis [de Quervain] (principal); M67.432 Ganglion, left wrist; I10 Essential (primary) hypertension
CPT/HCPCS: 88304; J2250; J2704; J3010

== ENCOUNTER 2019-01-29 08:38 | Emergency (ER) | payer BC, OTHER ==
--- OUTSIDE RECORDS SUMMARY | 2019-01-29 08:47 | XMS REPORT | Summary of Care ---
:1985 Author Organization [facility] Address [address] [place] [address] Care Team Providers Name Role Phone Hank Pathak Primary Care Provider Reason for Visit Reason Comments Check Up pt presents in office to discuss high BP, pt went to get cortizone shots in his back 2 days ago and was told his BP was very high Encounter Details Date Type Department Care Team Description 12/18/2018 Office Visit [facility]met Nereyda Coats, [facility] PA-C (Primary Dx) [address] [facility] [address] [place] [address] [place] [address] [phone] Allergies No Known Allergiesdocumented as of this encounter (statuses as of 12/18/2018) Medications Medication Sig Dispensed Refills Start Date End Date Status Multiple Vitamin (ONE-A-DAY Take 1 Tab by 0 Active MENS) Oral Tab mouth DAILY. diltiazem (DILTIAZEM CD) Take 1 Cap by 30 Cap 6 09/08/2018 Active 240 MG Oral CAPSULE SR 24 mouth DAILY. HR hydrochlorothiazide (HCTZ, Take 1 Cap by 30 Cap 5 09/09/2018 Active ORETIC) 12.5 MG Oral mouth DAILY. CapIndications: HTN, goal to be determined documented as of this encounter (statuses as of 12/18/2018) Active Problems Problem Noted Date Spondylosis of lumbar region without myelopathy or radiculopathy 06/11/2016 Low back pain 09/21/2015 Bilateral low back pain without sciatica 09/21/2015 Benign hypertension 06/16/2015 Marijuana abuse 06/28/2008 documented as of this encounter (statuses as of 12/18/2018) Social History Tobacco Use Types Packs/Day Years Used Date Never Smoker Smokeless Tobacco: Never Used Alcohol Use Drinks/Week oz/Week Comments Yes 0 Standard drinks or equivalent 0.0 weekends x 2 Sex Assigned at Date Recorded Not on file Job Start Date Occupation Industry Not on file Not on file Not on file Travel History Travel Start Travel End No recent travel history available. documented as of this encounter Last Filed Vital Signs Vital Sign Reading Time Taken Comments Blood Pressure 138/82 12/18/2018 1:32 PM EDT Pulse 71 12/18/2018 1:15 PM EDT Temperature - - Respiratory Rate - - Oxygen Saturation 97% 12/18/2018 1:15 PM EDT Inhaled Oxygen Concentration - - Weight 131.9 kg (290 lb 12.8 oz) 12/18/2018 1:15 PM EDT Height 180.3 cm (5' 11") 12/18/2018 1:15 PM EDT Body Mass Index 40.56 12/18/2018 1:15 PM EDT documented in this encounter Patient Instructions Patient InstructionsDoNereyda rosa PA-C - 12/18/2018 1:00 PM EDTLong discussion with patient He does not want to change or add meds Admits he needs to make lifestyle changes Discussed low-carb choices, wraps instead of bread, veggies instead of starches Reduce amount of marijuana smoked daily Start walking, DO NOT EAT AND GO TO SLEEP Return in 1 week for BP nurse visit F/U with Dr. Pathak Discussed proper way to take BP -- sit with feet on floor for 5 min, then take BP documented in this encounter Progress Notes Nereyda Medrano PA-C - 12/18/2018 1:00 PM EDT PATIENT: Lito Mooney : 1985 DATE OF SERVICE: 12/18/2018 REFERRING PRACTITIONER: [place] PRIMARY CARE PROVIDER: Hank Pathak CHIEF COMPLAINT: Chief Complaint Patient presents with Check Up pt presents in office to discuss high BP, pt went to get cortizone shots in his back 2 days ago and was told his BP was very high Subjective HISTORY OF PRESENT ILLNESS: Lito Mooney is a 33-y.o. 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 hydrochlorothiazide (HCTZ, ORETIC) 12.5 MG Oral Cap Take 1 Cap by mouth DAILY. Multiple Vitamin (ONE-A-DAY MENS) Oral Tab Take 1 Tab by mouth DAILY. No current facility-administered medications for this visit. No Known Allergies Social History Socioeconomic History Marital status: Single Spouse name: Not on file Number of children: Not on file Years of education: Not on file Highest education level: Not on file Occupational History Not on file Social Needs Financial resource strain: Not on file Food insecurity: Worry: Not on file Inability: Not on file Transportation needs: Medical: Not on file Non-medical: Not on file Tobacco Use Smoking status: Never Smoker Smokeless tobacco: Never Used Substance and Sexual Activity Alcohol use: Yes Alcohol/week: 0.0 standard drinks Comment: weekends x 2 Drug use: Yes Frequency: 8.0 times per week Types: Marijuana Sexual activity: Never Lifestyle Physical activity: Days per week: Not on file Minutes per session: Not on file Stress: Not on file Relationships Social connections: Talks on phone: Not on file Gets together: Not on file Attends worship service: Not on file Active member of club or organization: Not on file Attends meetings of clubs or organizations: Not on file Relationship status: Not on file Intimate partner violence: Fear of current or ex partner: Not on file Emotionally abused: Not on file Physically abused: Not on file Forced sexual activity: Not on file Other Topics Concern Not on file Social History Narrative Glenn Reed Jr REVIEW OF SYSTEMS: Skin: negative skin lesions Eyes: negative visual blurring Ears/Nose/Throat: negative rhinorrhea or sore throat Respiratory: negative cough Cardiovascular: negative chest pain Gastrointestinal: negative abdominal pain, constipation, diarrhea, nausea or vomiting Genitourinary: negative burning on urination, dysuria Musculoskeletal: positive arthritis/joint pain Neurologic: negative numbness or tingling of feet or hands Psychiatric: negative anxiety Hematologic/Lymphatic/Immunologic: negative allergies Endocrine: negative diabetes or hot flashes/sweats Objective PHYSICAL EXAMINATION: VITALS: BP 138/82 (BP Location: Right arm) | Pulse 71 | Ht 5' 11" (1.803 m) | Wt 290 lb 12.8 oz (131.9 kg) | SpO2 97% | BMI 40.56 kg/m Body mass index is 40.56 kg/m. General appearance - alert, no distress, cooperative, oriented times 3 Skin - Skin color, texture, turgor normal. No rashes or lesions. Head - Normocephalic. No masses, lesions, tenderness or abnormalities Eyes - conjunctivae/corneas clear. PERRL, EOM's intact. Oropharynx - Lips, mucosa, and tongue normal. Teeth and gums normal. Oropharynx normal. Neck - Neck supple, FROM. No cervical or supraclavicular adenopathy. Thyroid normal, no enlargement Lungs - Good diaphragmatic excursion. Lungs clear. Chest symmetrical. Normal breath sounds. Heart - RRR. No murmurs, clicks or gallops. No peripheral edema. IMPRESSION: ICD-9-CM ICD-10-CM 1. Essential hypertension 401.9 I10 Plan PLAN: Long discussion with patient He does not want to change or add meds Admits he needs to make lifestyle changes Discussed low-carb choices, wraps instead of bread, veggies instead of starches Reduce amount of marijuana smoked daily Start walking, DO NOT EAT AND GO TO SLEEP Return in 1 week for BP nurse visit F/U with Dr. Pathak Discussed proper way to take BP -- sit with feet on floor for 5 min, then take BP More than 50% of the physician/patient and or family encounter was spent with counseling and coordination of care. Total visit time involved was 30 minutes. Author: Nereyda Medrano PA-C 12/18/2018 13:15 documented in this encounter Plan of Treatment Date Type Specialty Care Team Description 12/25/2018 Nurse/Clinical Support Internal Medicine Health Maintenance Due Date Last Done Comments HIV SCREENING 2000 DEPRESSION SCREENING 05/03/2019 05/02/2018 HPV IMMUNIZATION SERIES Aged Out No longer eligible based on patient's age to complete this topic MENINGOCOCCAL VACCINE IMM Aged Out No longer eligible based on patient's age to complete this topic PNEUMOCOCCAL 0-64 YRS Aged Out No longer eligible based on patient's age to complete this topic documented as of this encounter Goals Goal Patient Goal Associated Recent Patient-Stated? Author Type Problems Progress Blood Pressure Blood Pressure 138/82 No Lawson, < 140/90 (12/18/2018 MD Hank 1:32 PM EDT) Note: This is an individualized treatment (blood pressure) goal for Lito Mooney: Displayed above (on the left) is your goal for blood pressure control. Your most recent blood pressure is also shown above, on the right. You should try to achieve blood pressures that are lower than your goal listed above (on the left). Weight loss vs. 18 mo max Lifestyle 0 (12/18/2018 1:15 PM EDT) No Hank Pathak MD (lbs) >= 10 Note: This is an individualized lifestyle goal for Lito Mooney: Your body mass index (BMI) is more than 30. You should lose weight. A reasonable starting goal is to lose 10 pounds. Displayed above is how many pounds you have lost thus far towards your 10 pound weight loss goal. Take all prescribed medications as directed Self-management Hank Lux MD Note: This is an individualized self-management goal for Lito Mooney: Please take all prescribed medications as directed. 1. Do not skip doses. If you cannot afford your medications, talk with your doctor. 2. Use a pill reminder system such as a pill box if needed. Your pharmacist can help you with this. 3. Contact your Pharmacy 5 days before your medication runs out. If you cannot take your medications for any reasons, talk with your doctor. 4. Please bring all of your medication bottles and inhalers (or a list of all your medications/inhalers) with you to every visit. Potential barriers to meeting all of your care plan goals will continue to be addressed on an ongoing basis. documented as of this encounter Results Not on filedocumented in this encounter Visit Diagnoses Diagnosis Essential hypertension - Primary Unspecified essential hypertension documented in this encounter Guarantor Name Account Type Relation to Date of Phone Billing Address Patient Lito Loaiza Personal/Famil 1985 [address] (Home) [place] [phone] documented as of this encounter
--- OUTSIDE RECORDS SUMMARY | 2019-01-29 08:47 | XMS REPORT | Continuity of Care Document ---
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D. 3-4 times a day Hydrochlorothiazide Hank Pathak MD 12.5mg Capsules Diltiazem HCL ER Coated Joanna Stephens, Beads PA-C 240mg Caps ER 24HR History Medications Ultracet 1 tab by mouth 15tabs Eva Osborn, 09/03/2018 - Unknown 37.5-325mg every 4-6 hours M.D. Tablets as needed pain Immunizations Description No Information Available Vital Signs Date Vital Result Comment 12/04/2018 9:30am Height 71 inches 5'11" Weight 280.00 lb Heart Rate 72 /min BP Systolic 132 mmHg BP Diastolic 80 mmHg Body Temperature 96.9 F Pain Level 5 BMI (Body Mass Index) 39.0 kg/m2 10/30/2018 2:08pm Height 71 inches 5'11" Weight 280.00 lb Heart Rate 66 /min BP Systolic 136 mmHg BP Diastolic 86 mmHg Pain Level 5 BMI (Body Mass Index) 39.0 kg/m2 Results Test Date Facility Test Result H/L Range Note Laboratory test 09/23/2018 [facility] Surgical SEE RESULT 1 , [address] [place] [address] [phone] 1 [id number] 2 SEE RESULT BELOW Name: SHARA MOONEYCLIF Loaiza : [address]: Eva Osborn MD Acct: [id number] Unit: [id number] AGE: 33 [facility] Re09/23/18 SEX: M Status: REG [facility] SPEC: [id number] BRANDON: 09/23/18-[address] [facility] [address]: Eva Osborn MD REQ: [id number] RECD: [id number]/[id number] STATUS: SOUT _ ORDERED: LEVEL 3 COMMENTS: [id number] FINAL DIAGNOSIS Left wrist, excision: -- Ganglion cyst. 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 Regulatory Law Specialist sections, one cassette. Signed by and Reported on: Leila Braxton MD 09/25/18 1447 END OF REPORT DEPARTMENT OF PATHOLOGY, [address] [place] [address] Moses Quinones M.D. Director [facility] # [id number] Procedures Date Code Description Status 09/23/2018 68447 Dequervains-Tendon Sheath Incision/Extensor Sheath,Wrist Completed 09/23/2018 73500 Dequervains-Tendon Sheath Incision/Extensor Sheath,Wrist Completed 09/23/2018 32449 Dequervains-Tendon Sheath Incision/Extensor Sheath,Wrist Completed Medical Devices Description No Information Available Encounters Type Date Location Provider Dx Diagnosis Office Visit 07/03/2018 [facility] Eva Osborn, M65.4 Radial styloid 10:30a at [facility] tenosynovitis [de Quervain] M65.4 Radial styloid tenosynovitis [de Quervain] Assessments Date Code Description Provider 12/04/2018 M65.4 Radial styloid tenosynovitis [de Quervain] Suzette Bitting, [facility] 12/04/2018 M67.432 Ganglion, left wrist Suzette Bitting, RPA-C 10/30/2018 M65.4 Radial styloid tenosynovitis [de Quervain] Suzette Bitting, RPA-C 10/30/2018 M67.432 Ganglion, left wrist Suzette Bitting, RPA-C 10/30/2018 Z47.89 Encounter for other orthopedic aftercare BETHANY Carey 10/02/2018 M65.4 Radial styloid tenosynovitis [de Quervain] Eva Osborn M.D. 09/23/2018 M65.4 Radial styloid tenosynovitis [de Quervain] BETHANY Carey 09/23/2018 M65.4 Radial styloid tenosynovitis [de Quervain] Eva Osborn M.D. 08/20/2018 M65.4 Radial styloid tenosynovitis [de Quervain] BETHANY Carey 08/13/2018 M65.4 Radial styloid tenosynovitis [de Quervain] Eva Osobrn M.D. 07/03/2018 M65.4 Radial styloid tenosynovitis [de Quervain] Eva Osborn M.D. 07/03/2018 M65.4 Radial styloid tenosynovitis [de Quervain] Eva Osborn M.D. Plan of Treatment Future Appointment(s):01/15/2019 9:30 am - Eva Osborn M.D. at [facility] at [id number]/04/2018 - CHARLES CareyCM65.4 Radial styloid tenosynovitis [de Quervain]New Therapy:Physical TherapyFollow up:Follow up: 6 [id number] Ganglion, left wrist Functional Status Description No Information Available Mental Status Description No Information Available Referrals Description No Information Available
[2019-01-29 08:51] VITALS: BP 167/86
--- NOTE | 2019-01-29 09:29 | UC ---
Throat Pain/Nasal Matt HPI - HPI Summary HPI Summary: 33-year-old male comes in with a chief complaint of a sore throat and body aches for several days. But week ago he started with some diarrhea and nausea. At its worst the diarrhea was 15 times a day now the diarrhea has stopped. Still has some nausea. His abdomen feels upset but he does not have any focal areas of pain. No prior abdominal surgeries. Does hurt when he swallows. - History of Current Complaint Chief Complaint: UCRespiratory Stated Complaint: ABD PAIN HEADACHE SORE THROAT Time Seen by Provider: 01/29/19 09:13 Pain Intensity: 7 - Allergies/Home Medications Allergies/Adverse Reactions: Allergies Allergy/AdvReac Type Severity Reaction Status Date / Time No Known Allergies Allergy Verified 01/29/19 08:50 PMH/Surg Hx/FS Hx/Imm Hx Previously Healthy: Yes Cardiovascular History: Hypertension Other History Of: Negative For: Anticoagulant Therapy - Surgical History Surgical History: Yes Surgery Procedure, Year, and Place: lumbar surgery 2010 - Family History Known Family History: Positive: Hypertension, Diabetes, Other - cancer Family History: cancer - Social History Alcohol Use: Occasionally Substance Use Type: Marijuana Substance Use Comment - Amount & Last Used: daily Smoking Status (MU): Never Smoked Tobacco Review of Systems All Other Systems Reviewed And Are Negative: Yes Constitutional: Positive: Other - see hpi Skin: Positive: Negative Eyes: Positive: Negative ENT: Positive: Sore Throat Respiratory: Positive: Negative Cardiovascular: Positive: Negative Gastrointestinal: Positive: Other - see hpi Motor: Positive: Negative Neurovascular: Positive: Negative Musculoskeletal: Positive: Myalgia Neurological: Positive: Negative Psychological: Positive: Negative Is Patient Immunocompromised?: No Physical Exam Triage Information Reviewed: Yes Appearance: No Pain Distress, Well-Nourished, Ill-Appearing Vital Signs: Initial Vital Signs Temp 97.4 F 01/29/19 08:47 Pulse 81 01/29/19 08:47 Resp 18 01/29/19 08:47 BP 167/86 01/29/19 08:47 Pulse Ox 97 01/29/19 08:47 Vital Signs Reviewed: Yes Eye Exam: Normal Eyes: Positive: Conjunctiva Clear ENT: Positive: Pharyngeal erythema, Tonsillar swelling - rt 3+, left 2+ Neck: Positive: Supple Respiratory: Positive: Lungs clear, Normal breath sounds, No respiratory distress Cardiovascular: Positive: RRR Abdomen Description: Positive: Nontender, Soft Bowel Sounds: Positive: Present Musculoskeletal: Positive: Strength Intact, ROM Intact Neurological: Positive: Alert, Muscle Tone Normal Psychological: Positive: Age Appropriate Behavior Skin Exam: Normal Throat Pain/Nasal Course/Dx - Course Course Of Treatment: Fluid strep were negative. Diarrhea has improved. Patient's right tonsil is larger than his left. No difficulty breathing. Discussed viral versus bacterial infections and the patient prefers to be on an antibiotic at this time. Otherwise he'll do symptomatic treatment. Follow-up primary care doctor get reevaluated sooner if worse or any questions or concerns. - Differential Dx/Diagnosis Provider Diagnosis: Tonsillitis, Diarrhea Discharge ED - Sign-Out/Discharge Documenting (check all that apply): Patient Departure All imaging exams completed and their final reports reviewed: No Studies - Discharge Plan Condition: Stable Disposition: HOME Prescriptions: Cephalexin CAP* [Keflex CAP*] 500 mg PO TID #30 cap Patient Education Materials: Acute Diarrhea (ED), Tonsillitis (ED) Referrals: Hank Pathak MD [Primary Care Provider] - Additional Instructions: FOLLOW UP WITH YOUR DOCTOR IF NOT COMPLETELY IMPROVED. GET REEVALUATED SOONER IF NOT IMPROVED OR WORSE OR ANY QUESTIONS OR CONCERNS. - Billing Disposition and Condition Condition: STABLE Disposition: Home
[2019-01-29] MEDS ORDERED: Ibuprofen TAB* 600 MG PO ONE (10:35)
== END 2019-01-29 10:42 | disposition home or self-care (01) ==
LOC: UCEAST 08:38
DX: R19.7 Diarrhea, unspecified (principal); J03.90 Acute tonsillitis, unspecified; M79.10 Myalgia, unspecified site; R11.0 Nausea; I10 Essential (primary) hypertension
CPT/HCPCS: 87651; 99212; A9270-GY; G0463

== ENCOUNTER 2019-02-03 09:07 | Emergency (ER) | payer BC ==
[2019-02-03 09:21] VITALS: BP 137/93
--- NOTE | 2019-02-03 10:07 | UC ---
FLU HPI - HPI Summary HPI Summary: 33 yo male presents with URI symptoms. He tells me that he was seen about 5 days ago with similar symptoms and diagnosed with tonsillitis and placed on keflex. He has been taking anbx as prescribed and feels his cough and sore throat are worse. He has not been taking anything OTC for his symptoms. He feels feverish at times, but has not taken his temperature. He smokes marijuana , but denies cigarette use. Denies SOB, rash, n/v - History of Current Complaint Chief Complaint: UCGeneralIllness Stated Complaint: SORE THROAT COUGH Time Seen by Provider: 02/03/19 10:07 Hx Obtained From: Patient Onset/Duration: Gradual Onset Severity Currently: Moderate Severity Initially: Moderate Pain Intensity: 5 Pain Scale Used: 0-10 Numeric - Allergy/Home Medications Allergies/Adverse Reactions: Allergies Allergy/AdvReac Type Severity Reaction Status Date / Time No Known Allergies Allergy Verified 02/03/19 09:21 PMH/Surg Hx/FS Hx/Imm Hx Cardiovascular History: Hypertension Other History Of: Negative For: Anticoagulant Therapy - Surgical History Surgical History: Yes Surgery Procedure, Year, and Place: lumbar surgery 2010 - Family History Known Family History: Positive: Hypertension, Diabetes, Other - cancer Family History: cancer - Social History Occupation: Employed Full-time Lives: With Family Alcohol Use: Occasionally Substance Use Type: Marijuana Substance Use Comment - Amount & Last Used: daily Smoking Status (MU): Never Smoked Tobacco Review of Systems All Other Systems Reviewed And Are Negative: No Constitutional: Positive: Negative Skin: Positive: Negative Eyes: Positive: Negative ENT: Positive: Sore Throat Respiratory: Positive: Cough Cardiovascular: Positive: Negative Gastrointestinal: Positive: Negative Neurovascular: Positive: Negative Neurological: Positive: Negative Psychological: Positive: Negative Physical Exam - Summary Physical Exam Summary: GENERAL: NAD. WDWN. No pain distress. SKIN: No rashes, sores, lesions, or open wounds. HEENT: Head: AT/NC Eyes: Conjunctiva clear without inflammation or discharge. Ears: Hearing grossly normal. TMs intact, no bulging, erythema, or edema. Nose: Nasal mucosa pink and moist. NTTP maxillary and frontal sinus. Throat: Posterior oropharynx mild erythema and 2+ tonsillar enlargement. Mild white exudates. Uvula midline. No hoarse voice or muffled voice. NECK: Supple. Nontender. No lymphadenopathy. CHEST: CTAB. No r/r/w. No accessory muscle use. Breathing comfortably and in no distress. CV: RRR.. Pulses intact. Cap refill <2seconds NEURO: Alert. PSYCH: Age appropriate behavior. Triage Information Reviewed: Yes Vital Signs: Initial Vital Signs Temp 98.8 F 02/03/19 09:18 Pulse 70 02/03/19 09:18 Resp 18 02/03/19 09:18 BP 137/93 02/03/19 09:18 Pulse Ox 100 02/03/19 09:18 Vital Signs Reviewed: Yes Flu Course/Dx - Course Course Of Treatment: Suspect URI/Tonsillitis. Will switch his anbx to augmentin and rx for cough medicine - Differential Dx/Diagnosis Provider Diagnosis: Upper respiratory infection, Tonsillitis Discharge ED - Sign-Out/Discharge Documenting (check all that apply): Patient Departure All imaging exams completed and their final reports reviewed: No Studies - Discharge Plan Condition: Stable Disposition: HOME Prescriptions: Amoxicillin/Clavulanate TAB* [Augmentin TAB 875*] 875 mg PO BID #14 tab Benzonatate CAP* [Tessalon 100 MG CAP*] 100 mg PO TID PRN #21 cap PRN Reason: Cough Codeine Phosphate/Guaifenesin [Guaifen-Codeine 100-10 mg/5 ml] 5 ml PO BEDTIME PRN #35 ml MDD 5mL PRN Reason: Cough Patient Education Materials: Upper Respiratory Infection (ED), Tonsillitis (ED) Forms: *Work Release Referrals: Hank Pathak MD [Primary Care Provider] - Additional Instructions: If you develop a fever, shortness of breath, chest pain, new or worsening symptoms - please call your PCP or go to the ED immediately. Your blood pressure was high at todays visit. Please see your primary provider within 4 weeks for recheck and re-evaluation. STOP taking the keflex and start taking the new prescriptions - Billing Disposition and Condition Condition: STABLE Disposition: Home
== END 2019-02-03 10:23 | disposition home or self-care (01) ==
LOC: UCEAST 09:07
DX: J06.9 Acute upper respiratory infection, unspecified (principal); J03.90 Acute tonsillitis, unspecified; I10 Essential (primary) hypertension; F12.90 Cannabis use, unspecified, uncomplicated
CPT/HCPCS: 99212; G0463

== ENCOUNTER 2019-02-04 22:44 | Emergency (ER) | payer BC ==
[2019-02-04 22:51] VITALS: BP 142/97
== END 2019-02-04 23:12 | disposition left against medical advice (07) ==
LOC: ED 22:44
DX: R53.1 Weakness (principal); Z53.21 Procedure and treatment not carried out due to patient leaving prior to being seen by health care provider

== ENCOUNTER 2019-04-19 19:42 | Emergency (ER) | payer BC ==
--- OUTSIDE RECORDS SUMMARY | 2019-04-19 19:48 | XMS REPORT | Summary of Care ---
:1985 Author Organization [facility] Address [address] [facility] [place] [address] Care Team Providers Name Role Phone Hank Pathak Primary Care Provider Reason for Visit Reason Comments Fatigue several months, getting worse Abdominal Pain Encounter Details Date Type Department Care Team Description 03/17/2019 Office Visit [facility] Amada Abbott, Malaise and fatigue (Primary Dx); Practice [facility] GI problem [address] [place] [address] [place] [address] [phone] Allergies No Known Allergiesdocumented as of this encounter (statuses as of 03/17/2019) Medications Medication Sig Dispensed Refills Start Date [...] as of this encounter (statuses as of 03/17/2019) Active Problems Problem Noted Date Spondylosis of lumbar region without myelopathy or radiculopathy 06/11/2016 Low back pain 09/21/2015 Bilateral low back pain without sciatica 09/21/2015 Benign hypertension 06/16/2015 Marijuana abuse 06/28/2008 documented as of this encounter (statuses as of 03/17/2019) Social History Tobacco Use Types Packs/Day Years [...] Sign Reading Time Taken Comments Blood Pressure 148/82 03/17/2019 10:04 AM EST Pulse 69 03/17/2019 10:04 AM EST Temperature 36.7 03/17/2019 10:04 AM EST C (98 F) Respiratory Rate - - Oxygen Saturation 97% 03/17/2019 10:04 AM EST Inhaled Oxygen Concentration - - Weight 134.3 kg (296 lb) 03/17/2019 10:04 AM EST Height - - Body Mass Index 41.28 12/18/2018 1:15 PM EDT documented in this encounter Patient Instructions Patient InstructionsAmada Abbott FNP - 03/17/2019 10:00 AM ESTLabs today Follow up pending reportsElectronically signed by Amada Abbott FNP at 2019 10:18 AM EST documented in this encounter Progress Notes Amada Abbott FNP - 03/17/2019 10:00 AM EST PATIENT: Lito Mooney : 1985 DATE OF SERVICE: 03/17/2019 CHIEF COMPLAINT: Chief Complaint Patient presents with Fatigue several months, getting worse Abdominal Pain Subjective HISTORY OF PRESENT ILLNESS: Lito Mooney is a 33-y.o. male. HPI Severe fatigue for several months, GI upset after eating - no particular food but sx after eating, gaining wt Past Medical History: Diagnosis Date Elevated BP Marijuana abuse Wrist pain right Family History Problem Relation Age of Onset [...] Financial resource strain: Not on file Food insecurity Worry: Not on file Inability: Not on file Transportation needs Medical: Not on file Non-medical: Not on file Tobacco Use Smoking status: Never Smoker Smokeless tobacco: Never Used Substance and Sexual Activity Alcohol use: Yes Alcohol/week: 0.0 standard drinks Comment: weekends x 2 Drug use: Yes Frequency: 8.0 times per week Types: Marijuana Sexual activity: Never Lifestyle Physical activity Days per week: Not on file Minutes per session: Not on file Stress: Not on file Relationships Social connections Talks on phone: Not on file Gets together: Not on file Attends protestant service: Not on file Active member of club or organization: Not on file Attends meetings of clubs or organizations: Not on file Relationship status: Not on file Intimate partner violence Fear of current or ex partner: Not on file Emotionally abused: Not on file Physically abused: Not on file Forced sexual activity: Not on file Other Topics Concern Not on file Social History Narrative Glenn Reed Jr REVIEW OF SYSTEMS: Review of Systems Constitutional: Positive for malaise/fatigue. Negative for chills and fever. Gastrointestinal: Positive for diarrhea, heartburn and nausea. Negative for abdominal pain, blood instool and vomiting. Musculoskeletal: Negative for joint pain and myalgias. Objective PHYSICAL EXAM: VITALS: BP (!) 148/82 | Pulse 69 | Temp 98 F (36.7 C) (Tympanic) | Wt 296 lb (134.3 kg)| SpO2 97% | BMI 41.28 kg/m Body mass index is 41.28 kg/m. Physical Exam Vitals signs reviewed. Nursing note reviewed: has not taken BP meds yet today. Constitutional: Appearance: He is obese. He is not diaphoretic. HENT: Head: Normocephalic and atraumatic. Nose: Nose normal. Mouth/Throat: Mouth: Mucous membranes are moist. Pharynx: Oropharynx is clear. Eyes: Extraocular Movements: Extraocular movements intact. Pupils: Pupils are equal, round, and reactive to light. Neck: Musculoskeletal: Normal range of motion. No neck rigidity. Cardiovascular: Rate and Rhythm: Normal rate and regular rhythm. Pulmonary: Effort: Pulmonary effort is normal. Breath sounds: Normal breath sounds. Abdominal: General: Bowel sounds are normal. There is no distension. Palpations: Abdomen is soft. Tenderness: There is no abdominal tenderness. There is no guarding or rebound. Musculoskeletal: Normal range of motion. Lymphadenopathy: Cervical: No cervical adenopathy. Skin: General: Skin is warm and dry. Capillary Refill: Capillary refill takes less than 2 seconds. Coloration: Skin is not cyanotic. Neurological: Mental Status: He is alert and oriented to person, place, and time. Cranial Nerves: Cranial nerves are intact. Gait: Gait is intact. Psychiatric: Behavior: Behavior is cooperative. ASSESSMENT / IMPRESSION: ICD-9-CM ICD-10-CM 1. Malaise and fatigue 780.79 R53.81 R53.83 2. GI problem 787.99 R19.8 Plan Labs today Follow up pending reports Author: TREV Brown 03/17/2019 10:12 documented in this encounter Plan of Treatment Name Type Priority Associated Diagnoses Order Schedule CBC WITH DIFFERENTIAL Lab Routine Malaise and fatigue Expected: 03/17/2019 (Approximate), Expires: 09/13/2019 LYME DISEASE SCREEN IGG/IGM Lab Routine Malaise and fatigue Expected: 03/17 (Approximate), Expires: 03/17/2020 THYROID STIMULATING HORMONE Lab Routine Malaise and fatigue Expected: 03/17 (Approximate), Expires: 09/13/2019 VITAMIN B12 / FOLATE Lab Routine Malaise and fatigue Expected: 03/17/2019 (Approximate), Expires: 09/13/2019 CELIAC DISEASE PANEL Lab Routine Malaise and fatigue Expected: 03/17/2019 (Approximate), Expires: 03/17/2020 Health Maintenance Due Date Last Done Comments DTaP/Tdap/Td Vaccines (1 - Tdap) 1996 HIV SCREENING 2000 DEPRESSION SCREENING 05/03/2019 05/02/2018 HEPATITIS A IMMUNIZATION SERIES Aged Out No longer eligible based on patient's age to complete this topic HPV IMMUNIZATION SERIES Aged Out No longer [...] Type Problems Progress Blood Pressure Blood Pressure 148/82 No Lawson, < 140/90 (03/17/2019 MD Hank 10:04 AM EST) Note: This is an individualized treatment (blood pressure) goal for Lito Mooney: Displayed above (on the left) is your goal for blood pressure control. Your most recent blood pressure is also shown above, on the right. You should try to achieve blood pressures that are lower than your goal listed above (on the left). Weight loss vs. 18 mo max Lifestyle 0 (03/17/2019 10:04 AM EST) No Hank Pathak MD (lbs) >= 10 [...] Take all prescribed medications as directed Self-management No Hank Pathak MD Note: This is an individualized self-management [...] filedocumented in this encounter Visit Diagnoses Diagnosis Malaise and fatigue Other malaise and fatigue GI problem Other symptoms involving digestive system documented in this encounter Guarantor Name Account Type Relation to Date of Phone Billing Address Patient Lito Mooney Personal/Famil 1985 [address] (Home) [place] [phone] documented as of this encounter"
[2019-04-19 19:52] VITALS: BP 143/93
[2019-04-19 20:16] LABS: Influenza A Molecular Negative (Negative); Influenza B Molecular Negative (Negative)
--- NOTE | 2019-04-19 20:18 | UC ---
Respiratory Complaint HPI - HPI Summary HPI Summary: nausea, vomiting diarrhea, cough, congestion, throat pain, feverish for 1 week and not getting better - History of Current Complaint Chief Complaint: UCRespiratory Stated Complaint: COUGH,SORE THROAT,NAUSEA Time Seen by Provider: 04/19/19 20:10 Hx Obtained From: Patient Onset/Duration: Sudden Onset, Lasting Weeks - 1, Still Present Timing: Constant Pain Intensity: 5 Pain Scale Used: 0-10 Numeric Character: Cough: Productive Aggravating Factors: Nothing Alleviating Factors: Nothing Associated Signs And Symptoms: Positive: Fever, Pleuritic Chest Pain, Nasal Congestion, Sinus Discomfort - Allergies/Home Medications Allergies/Adverse Reactions: Allergies Allergy/AdvReac Type Severity Reaction Status Date / Time No Known Allergies Allergy Verified 02/04/19 22:51 Home Medications: Home Medications Hydrochlorothiazide TAB* [Hydrodiuril TAB*] 12.5 mg PO QAM 11/10/17 [History Confirmed 02/03/19] Ibuprofen TAB* [Motrin TAB* 800 MG] 800 mg PO Q6H 09/16/18 [History Confirmed ] dilTIAZem HCl [Dilt-Xr] 240 mg PO QAM 09/16/18 [History Confirmed 02/03/19] Azithromycin TAB* [Zithromax TAB (Z-CAIN) 250 mg #6 tabs] 250 mg PO DAILY #4 tab 04/19/19 [Rx] PMH/Surg Hx/FS Hx/Imm Hx Previously Healthy: No Cardiovascular History: Hypertension Other History Of: Negative For: Anticoagulant Therapy - Surgical History Surgical History: Yes Surgery Procedure, Year, and Place: lumbar surgery 2010. wrist surgery August 2018 - Family History Known Family History: Positive: Hypertension, Diabetes, Other - cancer Family History: cancer - Social History Occupation: Employed Full-time Lives: With Family Alcohol Use: Occasionally Substance Use Type: Marijuana Substance Use Comment - Amount & Last Used: daily Smoking Status (MU): Never Smoked Tobacco Review of Systems All Other Systems Reviewed And Are Negative: Yes Constitutional: Positive: Fever, Chills, Fatigue Skin: Positive: Negative Eyes: Positive: Negative ENT: Positive: Sore Throat, Nasal Discharge, Sinus Congestion Respiratory: Positive: Cough Cardiovascular: Positive: Negative Gastrointestinal: Positive: Vomiting, Diarrhea Genitourinary: Positive: Negative Motor: Positive: Negative Neurovascular: Positive: Negative Musculoskeletal: Positive: Negative Neurological/Mental Status: Positive: Negative Psychological: Positive: Negative Is Patient Immunocompromised?: No Physical Exam Triage Information Reviewed: Yes Appearance: Well-Appearing, No Pain Distress, Well-Nourished Vital Signs: Initial Vital Signs Temp 99.3 F 04/19/19 19:47 Pulse 70 04/19/19 19:47 Resp 18 04/19/19 19:47 BP 143/93 04/19/19 19:47 Pulse Ox 99 04/19/19 19:47 Vital Signs Reviewed: Yes Eye Exam: Normal Eyes: Positive: Conjunctiva Clear ENT Exam: Normal ENT: Positive: Normal ENT inspection, Hearing grossly normal, Pharynx normal, TMs normal, Uvula midline. Negative: Nasal congestion, Tonsillar swelling, Trismus, Muffled voice, Hoarse voice Dental Exam: Normal Neck exam: Normal Neck: Positive: Supple, Nontender, No Lymphadenopathy Respiratory Exam: Normal Respiratory: Positive: Chest non-tender, Lungs clear, Normal breath sounds, No respiratory distress, No accessory muscle use Cardiovascular Exam: Normal Cardiovascular: Positive: RRR, No Murmur, Pulses Normal, Brisk Capillary Refill Musculoskeletal Exam: Normal Musculoskeletal: Positive: Strength Intact, ROM Intact, No Edema Neurological Exam: Normal Neurological: Positive: Alert, Muscle Tone Normal Psychological Exam: Normal Skin Exam: Normal Diagnostics - Laboratory Lab Results: influenza a/b -, strep - Respiratory Course/Dx - Course Course Of Treatment: will treat with zithromax if symptoms fail to improve increase fluids otc medications for symptom relief follow with pcp prn - Differential Dx/Diagnosis Provider Diagnosis: Bronchitis, Hypertension Discharge ED - Sign-Out/Discharge Documenting (check all that apply): Patient Departure All imaging exams completed and their final reports reviewed: No Studies - Discharge Plan Condition: Stable Disposition: HOME Prescriptions: Azithromycin TAB* [Zithromax TAB (Z-CAIN) 250 mg #6 tabs] 250 mg PO DAILY #4 tab Patient Education Materials: Acute Bronchitis (ED), Hypertension (ED), How to Use a Metered-Dose Inhaler and a Spacer (ED) Forms: *Work Release Referrals: Hank Pathak MD [Primary Care Provider] - 2 Weeks - Billing Disposition and Condition Condition: STABLE Disposition: Home
[2019-04-19] MEDS ORDERED: Albuterol HFA INHALER* 8 gm MDI INH ONE (20:20)
[2019-04-19] MEDS ORDERED: Azithromycin TAB* 250 MG PO ONE (20:20)
== END 2019-04-19 20:35 | disposition home or self-care (01) ==
LOC: UCEAST 19:42
DX: J40 Bronchitis, not specified as acute or chronic (principal); I10 Essential (primary) hypertension
CPT/HCPCS: 87651; 99212; A9270-GY; G0463